=== PATIENT | male | born 1965 | race African-American/Black ===

== ENCOUNTER 2022-07-18 09:41 | Outpatient (CLI) | payer MEDICARE, MEDICAID, SELFPAY | END 2022-07-18 09:42 | disposition home or self-care (01) | PROVIDERS: Referring Provider Otolaryngology; Visit Provider Otolaryngology | DX: H90.3 Sensorineural hearing loss, bilateral (principal) | CPT/HCPCS: 92553; 92555; 92567 ==

== ENCOUNTER 2022-07-26 07:59 | Outpatient (CLI) | payer MEDICARE, MEDICAID, SELFPAY ==
--- NOTE | ~2022-07-26 | XR_ITS ---
EXAMINATION: XR barium swallow modified DATE: 07/26/2022 09:02 INDICATION: Dysphagia TECHNIQUE: Modified barium esophagram was performed by myself who administered fluoroscopy, in conju nction with speech pathologist who administered barium in varying consistencies as per speech patholo gist documentation. This was recorded on tape. A single fluoroscopic spot image was recorded. Fluoros copy exposure time was 4.2 minutes. The DAP for this procedure was 2.571 Gycm2. FINDINGS: Oral stage: Adequate function. Pharyngeal phase: Reduced laryngeal elevation and adduction, reduced tongue base retraction, vallecul ar and piriform sinus residue. Laryngeal penetration: Present. Aspiration: Present. Laryngeal sensitivity: Absent. IMPRESSION: Abnormal modified barium swallow. Please refer to speech pathologist findings and specifi c feeding recommendations. Reviewed, dictated and finalized at location A. IMPRESSION: Abnormal modified barium swallow. Please refer to speech pathologis t findings and specific feeding recommendations.
--- NOTE | 2022-07-26 16:33 | REHSTMBS ---
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 ST Clinical Summary Patient was seen for a Modified Barium Swallow secondary to dysphagia of unknown origin. It was not determined if this was a first Modified Barium Swallow test or a repeat to assess progress. Patient was essentially non-verbal other than occasional affirmative/negative responses. When asked if he had been having difficulty swallowing, patient responded with an affirmative response. It was not known if patient was in a facility or living at home. Today the patient exhibited the following impairments: Oral Stage: Significant delays in the initiation of the swallow and oral transit time Pharyngeal Stage: Reduced base of tongue retraction required to press bolus through the pharynx quickly and adequately. Reduced laryngeal elevation contributing to adequate epiglottal inversion to safely close the airway as food/liquid passes through the pharynx. SILENT ASPIRATION Cricopharyngeal Stage: Within normal limits. Results indicate this patient is at significant risk for aspiration and may benefit from alternative feeding method. Shoudl he remain on oral feedings, a Pureed to chopped diet may be suggested with at least Moderately (Honey) Thick Liquid consistency for all beverages. If possible, patient may require Speech Therapy to address both diet and liquid consistency instructions and for swallowing strengthening exercises. Thank you for this referral.
== END 2022-07-26 08:00 | disposition home or self-care (01) ==
PROVIDERS: PCP Internal Medicine; Visit Provider Otolaryngology
DX: R13.10 Dysphagia, unspecified (principal); R93.3 Abnormal findings on diagnostic imaging of other parts of digestive tract
CPT/HCPCS: 92611